=== PATIENT | male | born 1945 ===

== ENCOUNTER 2021-12-27 14:51 | Outpatient (REF) | payer MEDICARE, MEDICAID, SELFPAY ==
[2021-12-27 14:57] LABS: HCT 40.7 % (40.0-50.0); HGB 13.4 g/dL (13.5-17.5); MCHC 32.9 % (32.0-36.0); MCV 91 fL (80-95); MPV 10.9 fL (8.0-11.0); Platelet Count 181 10^3/uL (130-400); RBC 4.47 10^6/uL (4.36-5.78); RDW 13.2 % (11.8-14.1); RDW-SD 44.7 fL; WBC 6.02 10^3/uL (4.4-10.8)
[2021-12-27 15:16] LABS: ALT 17 U/L (16-63); AST 20 U/L (15-37); Albumin 3.8 g/dL (3.4-5.0); Alkaline Phosphatase 81 U/L (46-116); BUN 18 mg/dL (7-18); Bilirubin, Total 0.6 mg/dL (0.2-1.0); CREATININE 1.1 mg/dL (0.70-1.30); Chloride 106 mmol/L (98-107); Glucose 94 mg/dL (74-106); Sodium 139 mmol/L (136-145); Total Protein 7.2 g/dL (6.4-8.2)
== END 2021-12-27 14:52 | disposition home or self-care (01) ==
LOC: NCHCN 14:51
PROVIDERS: PCP Nurse Practitioner Family; Visit Provider Nurse Practitioner Family
DX: Z00.00 Encounter for general adult medical examination without abnormal findings (principal)
CPT/HCPCS: 80053; 85027

== ENCOUNTER 2022-01-27 15:19 | Outpatient (REF) | payer MEDICARE, SELFPAY ==
[2022-01-27 16:08] LABS: ALT 27 U/L (16-63); AST 30 U/L (15-37); Albumin 3.9 g/dL (3.4-5.0); Alkaline Phosphatase 76 U/L (46-116); Anion Gap 13.3 mmol/L (3-11); BUN 14 mg/dL (7-18); Bilirubin, Total 0.9 mg/dL (0.2-1.0); CO2 24.7 mmol/L (21.0-32.0); Calcium 9.1 mg/dL (8.5-10.1); Chloride 103 mmol/L (98-107); Glucose 95 mg/dL (74-106); Sodium 141 mmol/L (136-145); Total Protein 7.3 g/dL (6.4-8.2)
== END 2022-01-27 15:20 | disposition home or self-care (01) ==
LOC: NCHCN 15:19
PROVIDERS: PCP Nurse Practitioner Family; Visit Provider Nurse Practitioner Family
DX: E78.5 Hyperlipidemia, unspecified (principal)
CPT/HCPCS: 80053